=== PATIENT | male | born 1965 | race African-American/Black ===

== ENCOUNTER 2017-11-03 11:25 | Emergency (ER) | payer OTHER ==
[2017-11-03 11:50] VITALS: BP 131/78; PULSE 92; TEMP 98.5; BMI 29.2
--- NOTE | 2017-11-03 13:55 | PDOC ---
History of Present Illness - General Chief Complaint: Diarrhea Stated Complaint: WEAKNESS, DIARRHEA Time Seen by Provider: 11/03/17 13:15 History Source: Patient Exam Limitations: No Limitations - History of Present Illness Travel History: No Initial Comments: 11/03/17 13:50 Chin here with complaints of 3 episodes of explosive foul-smelling diarrhea today, 2 episodes yesterday. Denies fever, denies any abdominal pain or cramping , denies any vomiting or nausea. Has no recent travel, has no known tainted food ingestion, no one else at home is sick. No history of Gastro illness Timing/Duration: reports: intermittent Quality: reports: mild Pain Radiation: reports: no radiation Aggravating Factors: improves with: None Past History - Travel Traveled outside of the country in the last 30 days: No Close contact w/someone who was outside of country & ill: No - Past Medical History Allergies/Adverse Reactions: Allergies Allergy/AdvReac Type Severity Reaction Status Date / Time No Known Allergies Allergy Verified 11/03/17 11:47 Home Medications: Ambulatory Orders NK [No Known Home Medication] 11/03/17 - Suicide/Smoking/Psychosocial Hx Smoking History: Never smoked Information on smoking cessation initiated: No Hx Alcohol Use: No Drug/Substance Use Hx: No Review of Systems - Review of Systems Able to Perform ROS?: Yes Is the patient limited Lao proficient: Yes Constitutional: Yes: Symptoms Reported, See HPI, Loss of Appetite, Malaise. No : Fever HEENTM: Yes: See HPI. No: Symptoms Reported Respiratory: Yes: See HPI. No: Symptoms reported ABD/GI: Yes: Symptoms Reported, Diarrhea (x 3 today no bleeding, no dark tarriness,), Nausea *Physical Exam - Vital Signs Last Vital Signs Temp Pulse Resp BP Pulse Ox 98.5 F 92 H 20 131/78 100 11/03/17 11:47 11/03/17 11:47 11/03/17 11:47 11/03/17 11:47 11/03/17 11:47 - Physical Exam General Appearance: Yes: Nourished, Appropriately Dressed. No: Apparent Distress HEENT: positive: ERIN, Normal ENT Inspection, Normal Voice, TMs Normal, Pharynx Normal Neck: positive: Supple. negative: Tender, Lymphadenopathy (R), Lymphadenopathy (L) Respiratory/Chest: positive: Lungs Clear, Normal Breath Sounds Gastrointestinal/Abdominal: positive: Normal Bowel Sounds, Soft. 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 May repeat times one every 8 hours Followup with private physician in one to 2 days as needed Return to emergency department for worsened symptoms, fevers, dehydration *DC/Admit/Observation/Transfer Diagnosis at time of Disposition: Diarrhea Qualifiers: Diarrhea type: unspecified type Qualified Code(s): R19.7 - Diarrhea, unspecified - Discharge Dispostion Disposition: HOME Condition at time of disposition: Stable Admit: No - Referrals - Patient Instructions Printed Discharge Instructions: Diarrhea Additional Instructions: Rest, drink lots of fluids: Teas, water, soups Catie mindi, carbonated beverages for the bubbles May try peppermint teas Avoid heavy , spicy or fatty foods until symptoms have resolved Avoid contact with others until fevers and symptoms resolved Lots of handwashing and good hygiene Continue bwbc-twu-qygskmr medications for symptomatic relief Tylenol or Motrin for fever and pain If diarrhea persists after 3 days, may consider using Pepto-Bismol, Imodium, or over iktv-[id number] preparations or diarrhea control Followup with private physician in one to 2 days as needed Return to emergency department for worsened symptoms, fevers, dehydration - Post Discharge Activity
== END 2017-11-03 14:01 | disposition home or self-care (01) ==
LOC: JERFT 11:25
DX: R19.7 Diarrhea, unspecified (principal)
CPT/HCPCS: 99281-25

== ENCOUNTER 2017-11-12 11:16 | Emergency (ER) | payer OTHER ==
--- NOTE | 2017-11-12 12:26 | PDOC ---
History of Present Illness - General History Source: Patient - History of Present Illness Timing/Duration: reports: intermittent Abdominal Pain Onset Location: reports: epigastric <Louise Young - Last Filed: 11/12/17 16:12> <Allyson López - Last Filed: 11/14/17 12:39> - General Chief Complaint: Pain, Acute Stated Complaint: BURNING SENSATION IN STOMACH Time Seen by Provider: 11/12/17 12:17 Past History - Past Medical History COPD: No HTN: Yes - Suicide/Smoking/Psychosocial Hx Smoking History: Never smoked Hx Alcohol Use: No Drug/Substance Use Hx: No <Louise Young - Last Filed: 11/12/17 16:12> <Allyson López - Last Filed: 11/14/17 12:39> - Past Medical History Allergies/Adverse Reactions: Allergies Allergy/AdvReac Type Severity Reaction Status Date / Time No Known Allergies Allergy Verified 11/12/17 11:58 Home Medications: Ambulatory Orders Famotidine [Pepcid] 20 mg PO DAILY #14 tablet 11/12/17 Review of Systems - Review of Systems Constitutional: No: Chills, Fever Respiratory: No: Shortness of Breath Cardiac (ROS): No: Chest Pain ABD/GI: No: Blood Streaked Bowels, Constipated, Diarrhea, Nausea, Rectal Bleeding, Vomiting, Tarry Stools : No: Burning, Dysuria, Flank Pain <Louise Young - Last Filed: 11/12/17 16:12> *Physical Exam - Vital Signs Last Vital Signs Temp Pulse Resp BP Pulse Ox 98 F 80 19 119/74 99 11/12/17 11:59 11/12/17 11:59 11/12/17 11:59 11/12/17 11:59 11/12/17 11:59 <Louise Young - Last Filed: 11/12/17 16:12> - Vital Signs Last Vital Signs Temp Pulse Resp BP Pulse Ox 98.2 F 72 17 143/78 98 11/12/17 15:48 11/12/17 17:07 11/12/17 17:07 11/12/17 17:07 11/12/17 17:07 <Allyson López - Last Filed: 11/14/17 12:39> ED Treatment Course - LABORATORY CBC & Chemistry Diagram: 11/12/17 13:15 11/12/17 13:15 <HannahKristiLily - Last Filed: 11/12/17 16:12> - LABORATORY CBC & Chemistry Diagram: 11/12/17 13:15 11/12/17 13:15 - ADDITIONAL ORDERS Additional order review: 11/12/17 13:15 RBC 5.10 MCV 83.4 MCHC 32.9 RDW 14.2 MPV 8.8 Neutrophils % 48.2 Lymphocytes % 38.2 Monocytes % 13.0 H Eosinophils % 0.4 Basophils % 0.2 - Medications Given in the ED: ED Medications Discontinued Medications Generic Name Dose Route Start Last Admin Trade Name Ronaldoq PRN Reason Stop Dose Admin Al Hydroxide/Mg Hydroxide 30 ml 11/12/17 12:27 11/12/17 13:02 Mylanta Oral Suspension - PO 11/12/17 12:28 30 ml ONCE ONE Administration Famotidine 20 mg in 12 mls @ 144 mls/hr 11/12/17 12:27 11/12/17 13:02 Pepcid 20 Mg/12 Ml Push IVPUSH 11/12/17 12:31 144 mls/hr ONCE ONE Administration Sodium Chloride 1,000 mls @ 1,000 mls/hr 11/12/17 12:28 11/12/17 13:02 Normal Saline - IV 11/12/17 13:27 1,000 mls/hr ASDIR STA Administration <Allyson López - Last Filed: 11/14/17 12:39> Medical Decision Making - Medical Decision Making 11/12/17 12:26 52-year-old male history of hypertension, not currently on medications, here with upper abdominal burning pain intermittently 3 days. No associated with food or exertion. No nausea, vomiting, fever, chills, diarrhea, constipation, melena or bright red blood per rectum. No h/o similar symptoms in the pt See exam Possible gastritis/GERD, r/o cardiac -pepcid/maalox -ekg -labs -reassess 11/12/17 14:08 Lipase ~500 w/ mild increase in ALT to >100. Rest of labs and EKG unremarkable. Patient has no risk factors for pancreatitis. Denies drinking alcohol at all and no history of gallstones. Will get ultrasound at this time 11/12/17 16:08 Ultrasound read as negative for gallstones or cholecystitis. Portion of pancreas seen is grossly unremarkable. There is hepatic steatosis. Patient has remained pain-free in ER and is stable for discharge. Will have patient follow-up with his PMD and give GI referral 11/12/17 16:12 <Louise Young - Last Filed: 11/12/17 16:12> *DC/Admit/Observation/Transfer <Louise Young - Last Filed: 11/12/17 16:12> - Attestations Physician Attestion: I reviewed the case with the mid-level practitioner and agree with the mid- level practitioner's assessment, diagnosis and disposition. <Allyson López - Last Filed: 11/14/17 12:39> Diagnosis at time of Disposition: Abdominal pain Qualifiers: Abdominal location: epigastric Qualified Code(s): R10.13 - Epigastric pain - Discharge Dispostion Disposition: HOME Condition at time of disposition: Good - Prescriptions Prescriptions: Famotidine [Pepcid] 20 mg PO DAILY #14 tablet - Referrals Referrals: Toñito Concepcion MD [Staff Physician] - Patrice Rich [Non Staff, Medical] - - Patient Instructions Printed Discharge Instructions: DI for Abdominal Pain-Adult Additional Instructions: The cause of her abdominal pain is unclear at this time, but could possibly be gastritis or GERD. Your labs and ultrasound were Unremarkable. Take pepcid as directed for pain and refrain from spicy or greasy food and caffeine Folow with Dr. Concepcion of GI and in the clinic for primary care
[2017-11-12] MEDS ORDERED: MAG HYDROX/AL HYDROX/SIMETH 30 ML UNIT-DOSE CUP PO ONE (12:27)
[2017-11-12] MEDS ORDERED: FAMOTIDINE IV 20 MG/12 ML VIAL IVPUSH ONE (12:27)
[2017-11-12] MEDS ORDERED: SODIUM CHLORIDE 1,000 ML IV STA (12:28)
[2017-11-12] MEDS ORDERED: MAG HYDROX/AL HYDROX/SIMETH 30 ML UNIT-DOSE CUP ONE (12:34)
[2017-11-12] MEDS ORDERED: FAMOTIDINE 20 MG/50 ML IVPB 20 MG/50 ML MG IVPB ONE (12:34)
[2017-11-12 13:30] LABS: BASO % 0.2 % (0-2.0); EOS % 0.4 % (0-4.5); HEMATOCRIT 42.5 % (35.4-49); LYMPH % 38.2 % (8-40); MCH 27.4 pg (25.7-33.7); MCHC 32.9 g/dl (32.0-35.9); MEAN CELL VOLUME 83.4 fl (80-96); MEAN PLT VOLUME 8.8 fl (7.5-11.1); NEUT % 48.2 % (42.8-82.8); PLATELET COUNT 306 K/MM3 (134-434); RDW 14.2 % (11.9-15.9); WHITE BLOOD COUNT 5.2 K/mm3 (4.0-10.0)
[2017-11-12 13:53] LABS: ALBUMIN 3.9 g/dl (3.4-5.0); ANION GAP 10 (8-16); BILIRUBIN,TOTAL 0.4 mg/dL (0.2-1.0); BLOOD UREA NITROGEN 15 mg/dL (7-18); CALCIUM 9.3 mg/dL (8.5-10.1); CHLORIDE 103 mmol/L (98-107); CO2 27 mmol/L (21-32); CREATININE 1.2 mg/dL (0.7-1.3); GLUCOSE,RANDOM 90 mg/dL (74-106); POTASSIUM 4.3 mmol/L (3.5-5.1); SGOT/AST 49 U/L (15-37); SGPT/ALT 109 U/L (12-78); SODIUM 140 mmol/L (136-145); TOT PROT 7.9 g/dl (6.4-8.2)
[2017-11-12 13:56] LABS: ALK PHOS 77 U/L (45-117)
[2017-11-12 14:00] LABS: LIPASE 582 U/L (73-393)
[2017-11-12 14:25] LABS: URINE APPEARANCE CLEAR; URINE BILIRUBIN NEGATIVE (NEGATIVE); URINE BLOOD NEGATIVE (NEGATIVE); URINE COLOR YELLOW; URINE GLUCOSE (UA) NEGATIVE (NEGATIVE); URINE KETONE NEGATIVE (NEGATIVE); URINE LEUK ESTERASE NEGATIVE (NEGATIVE); URINE NITRITE NEGATIVE (NEGATIVE); URINE UROBILINOGEN NEGATIVE mg/dL (0.2-1.0)
[2017-11-12 14:26] LABS: URINE MUCUS RARE; URINE PROTEIN 1+ (NEGATIVE)
--- NOTE | 2017-11-12 14:43 | EKG ---
Test Reason : Blood Pressure : / mmHG Vent. Rate : 075 BPM Atrial Rate : 075 BPM P-R Int : 166 ms QRS Dur : 068 ms QT Int : 362 ms P-R-T Axes : 065 -10 030 degrees QTc Int : 404 ms SINUS RHYTHM WITH MARKED SINUS ARRHYTHMIA POSSIBLE LEFT ATRIAL ENLARGEMENT BORDERLINE ECG NO PREVIOUS ECGS AVAILABLE Confirmed by ANJALI ROMERO MD ([id number]) on 11/12/2017 2:43:21 PM Referred By: Confirmed By:ANJALI ROMERO MD
[2017-11-12 15:49] VITALS: TEMP 98.2
[2017-11-12 17:08] VITALS: BP 143/78; PULSE 72
== END 2017-11-12 17:08 | disposition home or self-care (01) ==
LOC: JER 11:16
PROC: 3E033GC Introduction of Other Therapeutic Substance into Peripheral Vein, Percutaneous Approach (ICD-10-PCS; principal; 2017-11-12)
PROC: 3E0337Z Introduction of Electrolytic and Water Balance Substance into Peripheral Vein, Percutaneous Approach (ICD-10-PCS; 2017-11-12)
DX: R10.13 Epigastric pain (principal); I10 Essential (primary) hypertension
CPT/HCPCS: 36415; 76705-TC; 80053; 81003; 81015; 82550; 82553; 83690; 84484; 85025; 93005; 93010; 99283-25

== ENCOUNTER 2022-05-30 10:11 | Emergency (ER) | payer OTHER ==
[2022-05-30 10:22] VITALS: BP 138/88; PULSE 78; RESP 20; TEMP 97.9; BMI 29.2
[2022-05-30] MEDS ORDERED: DIPHTH,PERTUSS(ACELL),TET 0.5 ML DISP.SYRIN IM ONE ×2 (12:37→12:55)
== END 2022-05-30 13:00 | disposition home or self-care (01) ==
LOC: JERFT 10:11
PROC: 3E0234Z Introduction of Serum, Toxoid and Vaccine into Muscle, Percutaneous Approach (ICD-10-PCS; principal; 2022-05-30)
DX: S61.200A Unspecified open wound of right index finger without damage to nail, initial encounter (principal); W26.0XXA Contact with knife, initial encounter
CPT/HCPCS: 90471; 90715; 99282-25

== ENCOUNTER 2022-06-03 11:53 | Emergency (ER) | payer OTHER ==
[2022-06-03 12:07] VITALS: BP 137/88; PULSE 88; RESP 16; TEMP 98.8; BMI 29.2
[2022-06-03] MEDS ORDERED: LIDOCAINE HCL 5% TOP OINTMENT 50 GM TUBE TP ONE (13:10)
== END 2022-06-03 12:15 | disposition home or self-care (01) ==
LOC: FER 11:53
DX: S61.200A Unspecified open wound of right index finger without damage to nail, initial encounter (principal); W29.8XXA Contact with other powered hand tools and household machinery, initial encounter
CPT/HCPCS: 99282-25